=== PATIENT | female | born 1970 | race Caucasian/White ===

== ENCOUNTER 2021-11-09 01:20 | Outpatient (CLI) | payer OTHER, SELFPAY ==
--- OUTSIDE RECORDS SUMMARY | 2021-11-09 01:22 | XMS_ITS | Encounter Summary ---
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 Here for IUD check o r removal based on her CT results Assessment and Plan 1. Removal of intrauterine devic e ? removal of iud (PROC) 2. Amenorrhea She does not have menses with the IUD. We will check labs to see if she is menopausal. If she is, then she does not need contraception anymore. If she is not, then we will begin some form of contrace ption. She does smoke and cannot be on the pill. We could use Depo-Provera. I spent 20 minutes in preparation in direct patient care today. ? FSH (follicle-stimulating hormone), serum ? lh (luteinizing hormone), serum Discussion Note: None recorded.Patient educational handouts: No information available. Plan of Care Reminders Provider Appointments e 20 Jeremiah Correia MD 12/25/2021 3:30PM Lab F[facility] [place] (Follicle-stimulating 10/12/2021 Hospital L ab Hormone), Serum (Internal) ? L[facility] [place] (Luteinizing Hormone), [facility] Referral None ? ? recorded. Procedures Removal of ? Iud (PROC) 10/12/2021 Surgeries None ? ? recorded. Imaging None ? ? recorded. Medications Name Start Date ? ? albuterol sulfate HFA 90 mcg/actuation aerosol inhaler ? Inhale 2 puffs every 4 hours by inhalation route as n eeded for 30 days. Combivent Respimat 20 mcg-100 mcg/actuation solution f or inhalation ? Inhale 1 puff 4 times a day by inhalation route as ne eded for 90 days. ibuprofen 600 mg tablet ? Take 1 tablet 4 times a day by oral route as needed f or 10 days. Mirena ? nicotine ? gum ondansetron 4 mg disintegrating tablet ? 1-2 tabs every 6 hours prn nausea Medications Administered None recorded. Vitals Weight Blood Pressure 142.7 lbs 122/78 mm[Hg] Results Lab Results Date Name Specimen Result Interpretation Description Value Range Status Address ? 10/12/2021 FSH S ? Fsh 80.2 see note Final [facility] [place] (Follicle-stimulating mIU/mL mIU/mL Hospital Lab Hormone), Serum ( Internal): [address] 10/12/2021 Lh (Luteinizing S ? Lh 38.0 see note Fi nal [place] Hormone), Serum mIU/mL mIU/mL H ospital Lab (Internal) : [address] Allergies Code Code System Name Reaction Severity Onset 20271208 RxNorm Flagyl Hives ? Vomiting ? ? Problems Name Status Onset Date Source ? Acute Sinusitis Active 02/18/2020 ? Mild Persistent Asthma Active 11/13/2020 ? Abdominal Pain Active 08/31/2021 ? Herpes Zoster Active ? History Nicotine Dependence Active ? History Chronic Obstructive Lung Disease Active ? History Joint Pain Active ? History Replacement of Intrauterine Active ? Hist ory Contraceptive Device Adult Health Examination Active ? History Procedures Date Name Performed by ? ? Diagnostic Laparoscopy Information not a vailable Notes: bilat Ovarian cysts ? Cryotherapy Information not avai lable Notes: of cervix at [facility] Vaccine List Vaccine Type COVID-19 (SARS-COV-2) vaccine, unspecifi ed 07/17/2021 COVID-19, mRNA, LNP-S, PF, 100 mcg/0.5 m L dose (Moderna) 07/01/2020?0.5 mL 07/30/2020?0.5 mL Hep B, adult 02/15/2018?1 mL influenza, seasonal, injectable 03/30/2018?0.5 mL 03/26/2019?0.5 mL 04/15/2020?0.5 mL 04/21/2021 MMR 02/15/2018?0.5 mL 03/21/2018?0.5 mL Tdap 09/15/2017?0.5 mL Social History Tobacco Smoking Status Heavy Tobacco Smoker (1 pack Notes: half a pack a per day) day Are you currently employed? Y Do you have smoke and carbon Y monoxide detectors in your home? What is your code status? 0 In the 14 days before symptom N onset, have you had close contact with a person who is under investigation for COVID-19 while that person was ill? What was the date of your most 08/31/2021 recent tobacco screening? Do you use any illicit or N recreational drugs? How many years have you smoked 32 tobacco? In the 14 days before symptom N onset, have you had close contact with a laboratory-confirmed COVID-19 while that case was ill? What is your exercise level? Moderate Notes: w alking and canoeing. Live alone or with others? with others Notes: Hus band and stepson What is your level of alcohol None consumption? Do you have any pets? Y Education 2 Year College Have you been to an area known N to be high risk for COVID-19? Language Difficulties No What is your current pack 20-29packyears years? Current Method of Control Intrautrine device Are you passively exposed to N smoke? Hard of hearing or deaf in one N or both ears? What is your level of caffeine Moderate Notes: 2 cups of coffee consumption? daily and sometimes a soda Have you recently traveled N abroad? 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 Past Encounters 10/12/2021 Removal of Intrauterine Device; Amenorrh ea Jeremiah Lopez MD: [address] [place] [phone], Ph. 09/28/2021 Abdominal Pain Mojgan Wang PA-C: [address] [place] [phone], Ph. History of Present Illness Note: <div>She has a Mirena IUD with an arm that seems to be in the myometrium. She states thatshe has had intermittent left-sided pain. The IUD was noted to be in the left myometrium on the CT. She denies vaginal bleeding. She has no other pelvic pain.</div>Review of Systems: ROS as noted in the HPI Review of Systems None recorded. Physical Exam ? Notes: <div>After discussing the pr ocedure with the patient, and the possibility that the IUD could break if it we re truly lodged in the myometrium, I did a speculum exam. The IUD strin gs were seen approximately 4 cm from the cervix. I was able to grasp the IUD st rings with a long Radha clamp. The IUD came out without difficulty. It came out in total with no breakage of an arm. She had some cramping, but she dayday ated this well.</div>
--- OUTSIDE RECORDS SUMMARY | 2021-11-09 01:22 | XMS_ITS | Encounter Summary ---
:1970 Author Care Team Providers Name Role Phone Mojgan Wang PA-C Primary Care Provider Unavailable Estefani Saul Director Of Sales Support [phone] Reason for Visit blood in stool Assessment and Plan 1. Abdominal pain and rectal bleeding. 08/31/2021 New problem, severe. To see Gen Surgery. Await labs. ? CBC w/ auto diff ? ESR (erythrocyte sedimenta tion rate), blood ? CMP, serum or plasma ? general surgeon referral - 51 yo woman. PAIN IS 5/10 AT LLQ AND HER LOWER BACK. POSITIVE BLACK STOOLS AND PO SITIVE RED BLOOD PER RECTUM WITH MUCH MUCOUS IN STOOLS X 10 DAYS. + FAM HISTORY OF BR EAST CANCERS BUT NO COLON CANCERS. FOR 2 WEEKS, TEMP HAS BEEN AT 99 DEGREES. WBC = 10 WITH POLYS AT 63% AND HEMOGLOBIN 13.6. NO NAUSEA. Has a Mirena. This doesn't fe el like her ovaries. ? ondansetron 4 mg disintegr ating tablet ? venipuncture ? urinalysis, complete Discussion Note: None recorded.Patient educational handouts: No information available. Plan of Care Reminders Provider Appointments e 20 Jeremiah Correia MD 12/25/2021 3:30PM Lab CBC W/ Auto [place] Diff 08/31/2021 Hospital Lab (In [facility]) ? ESR [place] (Erythrocyte 08/31/2021 Hospital Lab (In [facility]) Sedimentation Rate), Blood ? CMP, Serum or [facility] Plasma 08/31/2021 Hospital Lab (In [facility]) ? Venipuncture P_nc Primary Care 08/31/2021 [place] ? Urinalysis, [place] Complete 08/31/2021 Hospital Lab (In [facility]) Referral General Surgeon A consuelo Referral 08/31/2021 [facility] Procedures None recorded. ? ? Surgeries None recorded. ? ? Imaging None recorded. ? ? Medications Name Start Date ? ? albuterol [...] prn nausea Medications Administered None recorded. Vitals Blood Pressure 126/76 mm[Hg] Results Lab Results Date Name Specimen Result Interpretation Description Value Range Status Address ? 08/31/2021 CBC W/ Auto BLD High Wbc 11.2 10*3/uL 5.0-10.0 Final [facility] 10*3/uL [facility] ([facility]) : [address] ? ? BLD ? Rbc 4.49 10*6/uL 4.10-5.30 Final N orth 10*6/uL [facility] (Internal) : [address] t ? ? BLD ? Hgb 13.9 g/dL 12.0-16.0 Final Nort [facility] g/dL [facility] L [facility] (Internal) : [address] t ? ? BLD ? Hct 41.9 % 37.0-47.0 Final [facility] L ab (Internal) : [address] t ? ? BLD ? Mcv 93.3 fL 80.0-96.0 Final [facility] L ab (Internal) : [address] t ? ? BLD ? Mch 31.0 pg 26.0-32.0 Final [facility] L ab (Internal) : [address] t ? ? BLD ? Mchc 33.2 g/dL 31.0-35.0 Final Nort [facility] g/dL [facility] (Internal) : [address] t ? ? BLD ? Rdw 12.9 % 11.5-14.5 Final [facility] L ab (Internal) : [address] t ? ? BLD ? Plt 319 10*3/uL 130-450 Final Nort [facility] 10*3/uL [facility] (Internal) : [address] t ? ? BLD ? Anc 6.00 10*3/uL ? Final Nort [facility] L ab (Internal) : [address] t ? ? BLD ? Nlr 1.38 0.00-3.20 Final [facility] L ab (Internal) : [address] t ? ? BLD ? Neutro 53.5 % 40.0-75.0 Final [facility] L ab (Internal) : [address] t ? ? BLD ? Lymph 38.8 % 20.0-50.0 Final [facility] L ab (Internal) : [address] t ? ? BLD ? Aiken 6.1 % 2.0-10.0 Final [facility] L ab (Internal) : [address] t ? ? BLD ? Eos 1.0 % 1.0-6.0 % Final [facility] L ab (Internal) : [address] t ? ? BLD ? Baso 0.4 % 0.0-1.0 % Final [facility] L ab (Internal) : [address] t ? ? BLD ? Ig 0.2 % 0.0-0.9 % Final [facility] L ab (Internal) : [address] t 08/31/2021 CMP, Serum or S ? g/r 84 mg/dL 74-106 Rosemary l [facility] Plasma mg/dL [facility] L ab (Internal) : [address] t ? ? S ? Bun 14 mg/dL 7-18 Final North mg/dL [facility] L ab (Internal) : [address] t ? ? S ? Crea 0.9 mg/dL 0.6-1.0 Final North mg/dL [facility] L ab (Internal) : [address] t ? ? S ? Ca 9.2 mg/dL 8.5-10.1 Final [facility] mg/dL [facility] L ab (Internal) : [address] t ? ? S ? Na 139 mmol/L 136-145 Final North mmol/L [facility] L [facility] (Internal) : [address] t ? ? S ? K 4.2 mmol/L 3.5-5.1 Final [facility] mmol/L [facility] (Internal) : [address] t ? ? S ? Cl 101 mmol/l 98-107 Final [place] mmol/l [facility] L [facility] (Internal) : [address] t ? ? S ? Tco2 28.6 mmol/L 21.0-32.0 Final No rth mmol/L [facility] L [facility] (Internal) : [address] t ? ? S ? Tp 7.3 g/dL 6.4-8.2 Final [facility] g/dL [facility] L [facility] (Internal) : [address] t ? ? S ? Alb 4.1 g/dL 3.4-5.0 Final [facility] g/dL [facility] L [facility] (Internal) : [address] t ? ? S ? Tbil 0.50 mg/dL 0.20-1.00 Final Nor th mg/dL [facility] L ab (Internal) : [address] ? ? S ? Alp 86 U/L 50-136 Final [facility] U/L [facility] L [facility] (Internal) : [address] ? ? S ? Alt (Sgpt) 22 U/L 14-59 U/L Final No rth [facility] L ab (Internal) : [address] ? ? S ? Ast (Sgot) 16 U/L 15-37 U/L Final No rth [facility] L [facility] (Internal) : [address] 08/31/2021 Urinalysis, UR ? UA-color yellow pale Final [place] Complete yellow [facility] L ab (Internal) : [address] t ? ? UR ? UA-appear clear clear Final [facility] L ab (Internal) : [address] t ? ? UR ? UA-spec >=1.030 1.003-1.0 Final Nort [facility] L ab (Internal) : [address] t ? ? UR ? UA-pH 5.5 [pH] 4.6-8.0 Final [place] [pH] [facility] L ab (Internal) : [address] [place] ? ? UR ? UA-leuk negative negative Final Nort [facility] L [facility] (Internal) : [address] [place] ? ? UR ? UA-nitrite negative negative Final N orth [facility] ab (Internal) : [address] [place] ? ? UR ? UA-prot negative negative Final Nort [facility] ab (Internal) : [address] [place] ? ? UR ? UA-gluc negative negative Final Nort [facility] ab (Internal) : [address] [place] ? ? UR ? UA-ketone negative negative Final No rth [facility] ab (Internal) : [address] [place] ? ? UR ? UA-urobil normal normal Final [facility] ab (Internal) : [address] [place] ? ? UR ? UA-bili negative negative Final [facility] ab (Internal) : [address] ? ? UR ? UA-blood negative negative Final [facility] ab (Internal) : [address] [place] ? ? UR ? UA-WBC 0-3 [hpf] 0-3 [hpf] Final [facility] ab (Internal) : [address] [place] ? ? UR ? UA-RBC 0-2 [hpf] 0-2 [hpf] Final [facility] ab (Internal) : [address] [place] ? ? UR ? UA-bacteri none seen none seen Final [place] a [hpf] [hpf] [facility] ab (Internal) : [address] [place] ? ? UR ? UA-epithel rare [hpf] none seen Final [place] ial [hpf] [facility] ab (Internal) : [address] [place] ? ? UR ? UA-mucus none seen none seen Final N orth [hpf] [hpf] [facility] ab (Internal) : [address] [place] ? ? UR ? Granular C rare [hpf] ? Final N [facility] ab (Internal) : [address] [place] 08/31/2021 ESR BLD ? Esr 4 mm/h 0-30 mm/h Final [facility] (Erythrocyte Coun try Sedimentation Hos pital Lab Rate), Blood (Int ernal): [address] 08/31/2021 Venipuncture ? Location Right ? ? P_nc Primary Antecubital Care [place]: [address], [place] ? ? ? Needle 21g ? ? P_nc Prim barb Vacutainer Care [place]: [address], [place] ? ? ? Number of 1 ? ? P_nc P rimary Attempts Care [place]: [address], [place] ? ? ? Successful Yes ? ? P_nc Primary Care [place]: [address], [place] ? ? ? Dressing Pressure ? ? P_nc Primary Band-aid Care Applied [place]: [address], [place] ? ? ? Initials hj ? ? P_nc Pr imary Care [place]: [address], [place] Allergies Code Code System Name Reaction Severity [...] not avai lable Notes: of cervix at [facility] Vaccine List Vaccine Type COVID-19 (SARS-COV-2) vaccine, [...] N abroad? 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 Past Encounters 08/31/2021 Abdominal Pain Mojgan Wang PA-C: [address] [place] [phone], Ph. History of Present Illness Note: <div>08/31/21: patient here for acute visit hematochezia for 3 days. 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 and bloating. The pain starts in the LLQ and radiates to the left lumbar-sacral area.</div><div>Patient states the black stools started Tuesday08/28/2021 and progressed into red bloody stools for 24-48 hours.</div&gt ;<div>RoS: Patient states now the stools are soft without blood but still experiencing the abdominal pain and bloating, along with mucousy stools. She is nauseated. She has no fevers.</div><div>Patient contacted by [facility] unable to have consult for colonscopy until 10/20/20.Patient wants to see if [facility] surgeons can see her sooner.</div>Review of Systems: ROS as noted in the HPI Review of Systems None recorded. Physical Exam ? Comprehensive PE (female) Reported By: Patient Constitutional: General Appearance: healthy- appearing, well-nourished, well-developed. Level of Dis tress: no apparent distress; Patient notices some fullnes s, pain under the left lower ribcage. No cough Respiratory: Respiratory effort: unlabore d respirations, no use of accessory muscles; CTA on 08/31/2021 Cardiovascular: Heart Auscultation: regular rate and rhythm (RRR) Gastrointestinal: Bowel Sounds: LLQ bowel soun ds normal, LUQ bowel sounds normal, RUQ bowel sounds normal, RLQ bow el sounds normal. Inspection and Palpation: LUQ tenderness, L LQ tenderness, epigastric tenderness, suprapubic tenderness, costo vertebral (CVA) tenderness: left Lymphatic: Palpation: no axillary lymph adenopathy on the left, no axillary lymphadenopathy on the right , no cervical lymphadenopathy on the left, no cervical lymphadeno [place] on the right, no supraclavicular lymphadenopathy on the left, no supraclavicular lymphadenopathy on the right, no inguinal lymph adenopathy on the left, no inguinal lymphadenopathy on the right Skin: Inspection and palpation: no rash, no abnormal nevi, no ulcer, no induration, normal turgor, n o jaundice, no subcutaneous nodules. Nails: normal Psychiatric: Insight: good insight, good judgment. Mental Status: normal mood, normal affect
--- OUTSIDE RECORDS SUMMARY | 2021-11-09 01:22 | XMS_ITS ---
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 Active ? Vomiting ? Active ? Medications Name Status Start Date Stop Date ? ? albuterol sulfate HFA 90 Active ? Not dinah ilable mcg/actuation aerosol inhaler amoxicillin 500 mg capsule Completed ? 11/12 amoxicillin 500 mg tablet Completed 07/07/20162016 1 (one) Tablet Tablet: bid - twice daily amoxicillin 875 mg tablet Completed ? 2019 amoxicillin 875 mg-potassium clavulanate 125 mg tablet Completed ? 04/27/2021 TAKE 1 TABLET BY MOUTH TWICE DAILY FOR 10 DAYS azithromycin 250 mg tablet Completed ? 04/27 TAKE TWO TABLETS BY MOUTH AT ONCE ON TH E FIRST DAY THEN TAKE ONE DAILY THEREAFTER azithromycin 500 mg tablet Completed ? 11/02 Take 1 tablet every day by oral route for 5 days. B12 Completed ? 11/02/2018 1000 mg daily Bactrim DS 800 mg-160 mg tablet Completed 11/21/2012 11/28/2012 1 (one) Tablet: two times daily Calcium 500 Completed ? 11/02/2018 cephalexin 500 mg capsule Completed ? 2020 cetirizine 10 mg tablet Completed 11/21/2012 08/07/19 15 1 Tablet: daily Chantix 1 mg tablet Completed 01/10/2013 07/19/2013 1 Tablet: bid - twice daily Chantix Starting Month Box 0.5 mg (11)-1 mg (42) tablets in dose pack Completed 12/18/2015 07/07/2016 1 (one) Tablet Tablet: As directed Combivent Respimat 20 mcg-100 Active ? No t available mcg/actuation solution for inhalation erythromycin 5 mg/gram (0.5 %) eye ointment Completed 03/0504/08/2015 1 (one) Ointment: bid - twice daily ibuprofen 600 mg tablet Active ? Not avai lable Lidocaine Viscous 2 % mucosal solution Completed 7 10/05/2016 15 Milliliter: three times daily, as needed meloxicam 7.5 mg tablet Completed ? 03/16/20 18 Take 1 tablet every day by oral route. Metrogel 1 % topical Completed ? 11/02/2018 APPLY TO THE AFFECTED AREA(S) BY TOPICA L ROUTE ONCE DAILY ; RUB IN GENTLY AND COMPLETELY Metrogel Vaginal 0.75 % Completed 06/01/2004 07/31/19 09 Mirena Active ? Not available misoprostol 200 mcg tablet Completed 08/05/200808/22 2 (two) Tablet: Take 2-4 hours before procedure Nasonex 50 mcg/actuation [place] Completed 11/21/2012 0 08/07/2014 2 (two) puffs: each nostril Daily nicotine Active ? Not available gum nicotine 14 mg/24 hr daily transdermal patch Completed ? 11/02/2018 Apply 1 patch every day by transdermal route. nicotine 21 mg/24 hr daily transdermal patch Completed 12/18/2015 1 (one) Patch 24HR: every three days omeprazole 40 mg capsule,delayed release Completed 016 12/18/2015 1 (one) Capsule DR: daily ondansetron 4 mg disintegrating tablet Active ? Not available 1-2 tabs every 6 hours prn nausea prednisone 10 mg tablet Completed 04/08/2015 04/24/20 15 1 (one) Tablet: See comments prednisone 20 mg tablet Completed ? 08/31/19 22 Take 1 tablet every day by oral route in the morning for 5 days . Probiotic Completed ? 11/13/2019 Symbicort 160 mcg-4.5 mcg/actuation HFA aerosol inhaler Complete d ? 11/13/2019 Inhale 2 puffs twice a day by inhalation route. valacyclovir 1 gram tablet Completed 02/28/201703/07 1 (one) Tablet: tid - three times a day Valium 5 mg tablet Completed 08/05/2008 08/22/2008 1 (one) Tablet: As directed vitamin A Completed ? 04/27/2021 Vitamin C Completed ? 04/27/2021 Vitamin D Completed ? 04/27/2021 vitamin E Completed ? 04/27/2021 Zofran 4 mg tablet Completed 10/14/2014 10/18/2014 1 (one) Tablet: every 12 hours Problems Name Status Onset Date Source ? Acute Sinusitis Active 02/18/2020 ? Mild Persistent Asthma Active 11/13/2020 ? Abdominal Pain Active 08/31/2021 ? Herpes Zoster Active ? History Biotin Deficiency Disease Unknown ? 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 History Nicotine Dependence Active ? History Pharyngitis Unknown ? History Sinusitis Unknown ? History Tracheobronchitis Unknown ? History Chronic Obstructive Lung Disease Active ? History Female Genital Organ Symptoms Unknown ? Hi story Joint Pain Active ? History Dizziness and Giddiness Unknown ? History Eruption Unknown ? History Edema Unknown ? History Tachycardia Unknown ? History Cough Unknown ? History Abdominal Pain Unknown ? History Replacement of Intrauterine Active ? Hist ory Contraceptive Device Counseling Unknown ? History Adult Health Examination Active ? History Inflammatory Disorder of Digestive Unknown ? History Tract Pain of Left Eye Unknown ? History Specialized Medical Examination Unknown ? History Procedures Date Name Performed by ? ? Diagnostic Laparoscopy Information not a vailable Notes: bilat Ovarian cysts ? Cryotherapy Information not avai lable Notes: of cervix at UV 11/13/2019 XR, Knee, 4 or More View [facility] H ospital Radiology (Internal) [address] [place] [address] (Work Place) 04/27/2021 XR, Thoracic Spine, 3 View [facility] Radiology (Internal) [address] [place] [address] (Work Place) 04/27/2021 XR, Cervical Spine, 4 or 5 View [facility] Radiology (Internal) [address] [place] [address] (Work Place) Results Lab Results Date Name Specimen Result Interpretation Description Value Range Status Address ? 10/12/2021 FSH S ? Fsh 80.2 see note Final Nort h (Follicle-stimulating mIU/mL mIU/mL Country Hormone), Serum H ospital Lab (Internal) : [address] 10/12/2021 Lh (Luteinizing S ? Lh 38.0 see note [facility] Hormone), Serum mIU/mL mIU/mL [facility] L ab (Internal) : [address] 09/28/2021 CRP, High Sensitivity, S ? Rcrp 2.15 mg/L 0 .00-3.00 Final [place] Serum or Plasma mg/L [facility] L ab (Internal) : [address] 09/28/2021 CBC W/ Auto Diff BLD ? Wbc 9.4 5.0-10.0 F inal [place] 10*3/uL 10*3/uL [facility] L ab (Internal) : [address] ? ? BLD ? Rbc 4.62 4.10-5.30 Final [place] 10*6/uL 10*6/uL [facility] Hospital L ab (Internal) : [address] ? ? BLD ? Hgb 14.5 g/dL 12.0-16.0 Final Nort h g/dL [facility] L ab (Internal) : [address] ? ? BLD ? Hct 44.2 % 37.0-47.0 Final [facility] L ab (Internal) : [address] ? ? BLD ? Mcv 95.7 fL 80.0-96.0 Final [facility] L ab (Internal) : [address] ? ? BLD ? Mch 31.4 pg 26.0-32.0 Final [facility] L ab (Internal) : [address] ? ? BLD ? Mchc 32.8 g/dL 31.0-35.0 Final Nort h g/dL [facility] L ab (Internal) : [address] ? ? BLD ? Rdw 12.8 % 11.5-14.5 Final [facility] L ab (Internal) : [address] ? ? BLD ? Plt 325 130-450 Final [place] 10*3/uL 10*3/uL [facility] L ab (Internal) : [address] ? ? BLD ? Anc 4.28 ? Final [place] 10*3/uL [facility] L ab (Internal) : [address] ? ? BLD ? Nlr 0.99 0.00-3.20 Final [facility] L ab (Internal) : [address], [place] ? ? BLD ? Neutr 45.8 % 40.0-75.0 Final [facility] Hospital L ab (Internal) : [address] ? ? BLD ? Lymph 46.3 % 20.0-50.[address] [facility] Hospital L ab (Internal) : [address] t ? ? BLD ? [place] 6.3 % 2.0-10.[address] [facility] Hospital L ab (Internal) : [address] t ? ? BLD Low Eos 0.7 % 1.0-6.0 % Final [facility] L ab (Internal) : [address] t ? ? BLD ? Baso 0.6 % 0.0-1.0 % Final [facility] L ab (Internal) : [address] t ? ? BLD ? Ig 0.3 % 0.0-0.9 % Final [facility] L ab (Internal) : [address] 09/28/2021 ESR (Erythrocyte BLD ? Esr 5 mm/h 0-30 mm/h Final [place] Sedimentation Rate), [facility] Blood [facility] L ab (Internal) : [address] 09/28/2021 Venipuncture ? Locat Right ? ? P_nc Primary ion [facility] [place]/Orl ea ns: [address], [place] ? ? ? Needl 21g ? ? P_nc Prima ry e Vacutaine Care r [place]/Orl ea ns: [address], [place] ? ? ? Numbe 1 ? ? P_nc Prima ry r of Care Attemp [place]/Orl ea ts ns: [address], [place] ? ? ? Succe Yes ? ? P_nc Prima ry ssful Care [place]/Orl ea ns: [address], [place] ? ? ? Dress Pressure ? ? P_nc Marilou sharon ing Band-aid Care Applied [place]/Or krishna ns: [address], [place] ? ? ? Initi hj ? ? P_nc Prima ry als Care [place]/Orl ea ns: [address], [place] 08/31/2021 CBC W/ Auto Diff BLD High Wbc 11.2 5.0-10.0 F inal [place] 10*3/uL 10*3/uL [facility] Hospital L ab (Internal) : [address] ? ? BLD ? Rbc 4.49 4.10-5.30 Final [place] 10*6/uL 10*6/uL [facility] Hospital L ab (Internal) : [address] ? ? BLD ? Hgb 13.9 g/dL 12.0-16.0 Final Nort h g/dL [facility] Hospital L ab (Internal) : [address] ? ? BLD ? Hct 41.9 % 37.0-47.[address] [facility] Hospital L ab (Internal) : [address] ? ? BLD ? Mcv 93.3 fL 80.0-96.0 Final [facility] L ab (Internal) : [address] ? ? BLD ? Mch 31.0 pg 26.0-32.0 Final [facility] Hospital L ab (Internal) : [address] ? ? BLD ? Mchc 33.2 g/dL 31.0-35.0 Final Nort h g/dL [facility] Hospital L ab (Internal) : [address] ? ? BLD ? Rdw 12.9 % 11.5-14.5 Final [facility] L ab (Internal) : [address] ? ? BLD ? Plt 319 130-450 Final [place] 10*3/uL 10*3/uL [facility] Hospital L ab (Internal) : [address] ? ? BLD ? Anc 6.00 ? Final [place] 10*3/uL [facility] Hospital L ab (Internal) : [address] ? ? BLD ? Nlr 1.38 0.00-3.20 Final [facility] Hospital L ab (Internal) : [address] ? ? BLD ? Neutr 53.5 % 40.0-75.0 Final [facility] Hospital L ab (Internal) : [address] ? ? BLD ? Lymph 38.8 % 20.0-50.[address] [facility] Hospital L ab (Internal) : [address] ? ? BLD ? [place] 6.1 % 2.0-10.0 Final [facility] (Internal[facility] : [address] ? ? BLD ? Eos 1.0 % 1.0-6.0 % Final [facility] (Internal) : [address] ? ? BLD ? Baso 0.4 % 0.0-1.0 % Final [place] [facility] (Internal) : [address] ? ? BLD ? Ig 0.2 % 0.0-0.9 % Final [place] [facility] (Internal) : [address] 08/31/2021 CMP, Serum or Plasma S ? g/r 84 mg/dL 74-1 06 Final [facility] mg/dL [facility] (Internal) : [address] ? ? S ? Bun 14 mg/dL 7-18 Final [place] mg/dL [facility] (Internal) : [address] ? ? S ? Crea 0.9 mg/dL 0.6-1.0 Final [place] mg/dL [facility] (Internal) : [address] ? ? S ? Ca 9.2 mg/dL 8.5-10.1 Final [place] mg/dL [facility] L [facility] (Internal) : [address] ? ? S ? Na 139 136-145 Final [place] mmol/L mmol/L [facility] (Internal) : [address] ? ? S ? K 4.2 3.5-5.1 Final [place] mmol/L mmol/L [facility] L [facility] (Internal) : [address] ? ? S ? Cl 101 98-107 Final [place] mmol/l mmol/l [facility] (Internal) : [address] ? ? S ? Tco2 28.6 21.0-32.0 Final [place] mmol/L mmol/L [facility] (Internal) : [address] ? ? S ? Tp 7.3 g/dL 6.4-8.2 Final [place] g/dL [facility] (Internal) : [address] ? ? S ? Alb 4.1 g/dL 3.4-5.0 Final [place] g/dL [facility] L ab (Internal) : [address] ? ? S ? Tbil 0.50 0.20-1.00 Final [place] mg/dL mg/dL [facility] (Internal) : [address] ? ? S ? Alp 86 U/L 50-136 Final [place] U/L [facility] L ab (Internal) : [address] ? ? S ? Alt 22 U/L 14-59 U/L Final [place] (Sgpt) [facility] L ab (Internal) : [address] ? ? S ? Ast 16 U/L 15-37 U/L Final [place] (Sgot) [facility] L ab (Internal) : [address] 08/31/2021 Urinalysis, Complete UR ? UA-co yellow pale Final [place] goran yellow [facility] L ab (Internal) : [address] ? ? UR ? UA-ap clear clear Final [facility] Hospital L ab (Internal) : [address] ? ? UR ? UA-sp >=1.030 1.003-1.0 Final [place] ec 35 [facility] Hospital L ab (Internal) : [address] ? ? UR ? UA-pH 5.5 [pH] 4.6-8.0 Final [place] [pH] [facility] L ab (Internal) : [address] ? ? UR ? UA-le negative negative Final [place] uk [facility] (Internal) : [address] ? ? UR ? UA-ni negative negative Final [place] trite [facility] L ab (Internal) : [address] ? ? UR ? UA-pr negative negative Final [place] ot [facility] L ab (Internal) : [address] ? ? UR ? UA-gl negative negative Final [place] uc [facility] L ab (Internal) : [address] ? ? UR ? UA-ke negative negative Final [place] tone [facility] L ab (Internal) : [address] ? ? UR ? UA-ur normal normal Final [place] obil [facility] ab (Internal) : [address], [place] ? ? UR ? UA-bi negative negative Final North li [facility] ab (Internal) : [address], [place] ? ? UR ? UA-bl negative negative Final North ood [facility] ab (Internal) : [address], [place] ? ? UR ? UA-WB 0-3 [hpf] 0-3 [hpf] Final Nort h C [facility] ab (Internal) : [address], [place] ? ? UR ? UA-RB 0-2 [hpf] 0-2 [hpf] Final Nort h C [facility] ab (Internal) : [address], [place] ? ? UR ? UA-ba none seen none seen Final Nort h cteria [hpf] [hpf] [facility] ab (Internal) : [address], [place] ? ? UR ? UA-ep rare none seen Final [place] itheli [hpf] [hpf] [facility] ab (Internal) : [address], [place] ? ? UR ? UA-mu none seen none seen Final Nort h cus [hpf] [hpf] [facility] ab (Internal) : [address], [place] ? ? UR ? Granu rare ? Final [place] lar C [hpf] [facility] (Internal) : [address] 08/31/2021 ESR (Erythrocyte BLD ? Esr 4 mm/h 0-30 mm/h Final [place] Sedimentation Rate), [facility] ab (Internal) : [address] 08/31/2021 Venipuncture ? Locat Right ? ? P_nc Primary ion [facility] [place]l [place] ns: [address], [place] ? ? ? Needl 21g ? ? P_nc Prima ry e Vacutaine Care r [place]l [place] ns: [address], [place] ? ? ? Numbe 1 ? ? P_nc Prima ry r of Care Attemp [place]l e[place] ts ns: [address], [place] ? ? ? Succe Yes ? ? P_nc Prima ry ssful Care [place]l ea ns: [address], [place] ? ? ? Dress Pressure ? ? P_nc Marilou sharon ing Band-aid Care Applied [place]/Or krishna ns: [address], [place] ? ? ? Initi hj ? ? P_nc Prima ry als Care [place] ns: [address], [place] 08/28/2021 CBC W/ Auto Diff BLD ? Wbc 10.0 5.0-10.0 F inal [place] 10*3/uL 10*3/uL [facility] Hospital L ab (Internal) : [address] ? ? BLD ? Rbc 4.40 4.10-5.30 Final [place] 10*6/uL 10*6/uL [facility] Hospital L ab (Internal) : [address] ? ? BLD ? Hgb 13.6 g/dL 12.0-16.0 Final Nort h g/dL [facility] Hospital L ab (Internal) : [address] ? ? BLD ? Hct 41.0 % 37.0-47.0 Final [facility] L ab (Internal) : [address] ? ? BLD ? Mcv 93.2 fL 80.0-96.0 Final [facility] L ab (Internal) : [address] ? ? BLD ? Mch 30.9 pg 26.0-32.0 Final [facility] L ab (Internal) : [address] ? ? BLD ? Mchc 33.2 g/dL 31.0-35.0 Final Nort h g/dL [facility] Hospital L ab (Internal) : [address] ? ? BLD ? Rdw 12.7 % 11.5-14.5 Final [facility] L ab (Internal) : [address] ? ? BLD ? Plt 299 130-450 Final [place] 10*3/uL 10*3/uL [facility] Hospital L ab (Internal) : [address] ? ? BLD ? Anc 6.27 ? Final [place] 10*3/uL [facility] L ab (Internal) : [address] ? ? BLD ? Nlr 2.13 0.00-3.20 Final [facility] L ab (Internal) : [address] ? ? BLD ? Neutr 63.0 % 40.0-75.0 Final [facility] o [facility] (Internal) : [address] ? ? BLD ? Lymph 29.5 % 20.0-50.0 Final [facility] L ab (Internal) : [address] ? ? BLD ? [place] 6.2 % 2.0-10.0 Final [facility] L ab (Internal) : [address] ? ? BLD Low Eos 0.4 % 1.0-6.0 % Final [facility] (Internal) : [address] ? ? BLD ? Baso 0.5 % 0.0-1.0 % Final [facility] (Internal) : [address] ? ? BLD ? Ig 0.4 % 0.0-0.9 % Final [facility] (Internal) : [address], [place] 10/13/2020 SARS CoV 2 RNA SWAB ? Covid shannan-cov-2 shannan-cov-2 Final [place] (COVID-19), QL, PCR not not Country order worker-PCR, Respiratory Screen detected detected Hospital Lab Specimen (Interna l): [address] 10/10/2020 SARS CoV 2 RNA SWAB ? Covid shannan-cov-2 shannan-cov-2 Final [place] (COVID-19), QL, PCR not not Country order worker-PCR, Respiratory Screen detected detected Hospital Lab Specimen (Interna l): [address] [place] 07/10/2019 Rapid Flu (A+B) ? No ? ? ? [facility] [address] [facility] [place] 07/10/2019 Mononucleosis, ? No ? ? ? P_nc Primary Heterophile Ab, Blood observ Care [facility]/Orl ea record ns: [address] [facility] 07/10/2019 Rapid Strep Group a, ? No ? ? ? P_nc Primary Throat observ Care [facility]/Orl ea record ns: [address] [facility] 07/05/2019 CBC W/ Auto Diff BLD High Wbc 16.3 5.0-10.0 F inal [place] 10*3/uL 10*3/uL [facility] L ab (Internal) : [address] ? ? BLD - Rbc 4.30 4.10-5.30 Final [place] 10*6/uL 10*6/uL [facility] Hospital L ab (Internal) : [address] ? ? BLD - Hgb 13.5 g/dL 12.0-16.0 Final Nort h g/dL [facility] Hospital L ab (Internal) : [address] ? ? BLD - Hct 41.0 % 37.0-47.[address] [facility] Hospital L ab (Internal) : [address] ? ? BLD - Mcv 95.3 fL 80.0-96.0 Final [facility] L ab (Internal) : [address] ? ? BLD - Mch 31.4 pg 26.0-32.0 Final [facility] Hospital L ab (Internal) : [address] ? ? BLD - Mchc 32.9 g/dL 31.0-35.0 Final Nort h g/dL [facility] Hospital L ab (Internal) : [address] ? ? BLD - Rdw 13.2 % 11.5-14.5 Final [facility] L ab (Internal) : [address] ? ? BLD - Plt 300 130-450 Final [place] 10*3/uL 10*3/uL [facility] Hospital L ab (Internal) : [address] ? ? BLD - Anc 12.44 ? Final [place] 10*3/uL [facility] Hospital L ab (Internal) : [address] ? ? BLD High Neutr 76.6 % 40.0-75.0 Final [facility] Hospital L ab (Internal) : [address] ? ? BLD Low Lymph 16.9 % 20.0-50.[address] [facility] Hospital L ab (Internal) : [address] ? ? BLD - [place] 5.4 % 2.0-10.0 Final [facility] (Internal) : [address] ? ? BLD Low Eos 0.3 % 1.0-6.0 % Final [facility] Hospital L ab (Internal) : [address] ? ? BLD - Baso 0.2 % 0.0-1.0 % Final [facility] Hospital L ab (Internal) : [address] ? ? BLD - Ig 0.6 % 0.0-0.9 % Final [facility] Hospital L ab (Internal) : [address] [facility] 07/05/2019 Rapid Strep Group a, THRT - Final microbiol ? Final [place] Throat ogy Country results [facility] (Internal[facility] : [address] [facility] Mononucleosis, BLD - [place] negative negative F inal [place] Heterophile Ab, Serum [facility] L ab (Internal) : [address] [facility] 07/05/2019 Rapid Flu (A+B) NASAL - Final microbiol ? F inal [facility] results Hospital Lab (Internal) : [address] 03/22/2018 Hepatitis B Surface S - Hep B positive ? Final [place] Ab, Qualitative, Serum [facility] e Ab Hospital L ab (Internal) : [address] ? ? S - Hbs >1000.0 ? Final [place] Antibo mIU/mL Country dy, Hospital L ab Quant (Internal) : [address] 01/10/2018 Hepatitis B Surface S - Hep B negative ? Final [place] Ab, Qualitative, Serum [facility] Hospital L ab (Internal) : [address] ? ? S - Hbs 7.4 ? Final [place] Antibo mIU/mL Country dy, Hospital L ab Quant (Internal) : [address] 01/10/2018 Mumps Igg Ab, Serum S - Mumps negative ? Final [place] Ab, Country IgG, S Hospital L ab (Internal) : [address] ? ? S - Mumps 0.2 ? Final [place] IgG Country Antibo Hospital L ab dy (Internal) : Index [address] 01/10/2018 Measles Igg Ab, Serum S - Measl positive ? Final [place] es IgG Country Antibo Hospital L ab dy (Internal) : [address] 01/10/2018 Vzv (Varicella-zoster) S - Varic negative ne gative Final [place] Igg+igm Ab, Serum [facility] L ab Ab, (Internal) : IgM, S [address] ? ? S - Varic positive ? Final [facility] L ab Ab, (Internal) : IgG, S [address] ? ? S - Varic 4.8 ? Final [facility] IgG Hospital L ab Antibo (Internal) : dy [address] 01/10/2018 Tb (M Tuberculosis), - quant negative nega tive Final [place] Ifn-gamma Courtney, [facility] Gold (Internal) : plus [address] ? ? - TB1 0.01 ? Final [place] Ag IU/mL Country minus Hospital L ab Nil (Internal) : Result [address] ? ? - TB2 0.00 ? Final [place] Ag IU/mL Country minus Hospital L ab Nil (Internal) : Result [address] ? ? - Mitog >10.00 ? Final [place] en IU/mL Country minus Hospital L ab Nil (Internal) : Result [address] ? ? - Nil 0.01 ? Final [place] Result IU/mL [facility] Hospital L ab (Internal) : [address] 01/10/2018 Rubella Ab, Serum BLD - Rbla positive positiv e Final [facility] Hospital L ab (Internal) : [address] 07/19/2017 Venipuncture BLD ? Venpn ? ? Final [place] * [facility] Hospital L ab (Internal) : [address] 07/19/2017 CRP, High Sensitivity, S ? Rcrp 0.18 0.10 -0.30 Final [place] Serum or Plasma mg/dL mg/dL [facility] L ab (Internal) : [address] 07/19/2017 Lipid Panel, Serum S ? Chol 190 mg/dL 50-20 0 Final [place] mg/dL [facility] L ab (Internal) : [address] ? ? S ? Trig 131 mg/dL 10-150 Final [place] mg/dL [facility] L ab (Internal) : [address] ? ? S Low Hdl 31 mg/dL 40-60 Final [place] mg/dL [facility] Hospital L ab (Internal) : [address] ? ? S High Ldl 133 mg/dL 0-130 Final [place] mg/dL [facility] Hospital L ab (Internal) : [address] 07/19/2017 TSH, Serum or Plasma S ? Tsh 2.08 0.47-4 .68 Final [place] u[IU]/mL u[IU]/mL Count[facility] Hospital L ab (Internal) : [address] 02/21/2017 CMP, Serum or Plasma S High g/r 114 mg/dL 74- 106 Final [place] mg/dL [facility] Hospital L ab (Internal) : [address] ? ? S ? Bun 15 mg/dL 7-17 Final [place] mg/dL [facility] Hospital L ab (Internal) : [address] ? ? S ? Crea 0.80 0.52-1.04 Final [place] mg/dL mg/dL [facility] L ab (Internal) : [address] ? ? S ? Ca 8.8 mg/dL 8.4-10.2 Final [place] mg/dL [facility] Hospital L ab (Internal) : [address] ? ? S ? Na 142 137-145 Final [place] mmol/L mmol/L [facility] : [address] t ? ? S ? K 3.6 3.5-5.1 [place] mmol/L mmol/L [facility] : [address] t ? ? S ? Cl 107 98-107 [place] mmol/L mmol/L [facility] ([facility]) : [address] t ? ? S ? Tco2 23.0 22.0-30.0 Final [place] mmol/L mmol/L [facility] ([facility]) : [address] t ? ? S ? Tp 6.9 g/dL 6.3-8.2 Final [place] g/dL [facility] (Internal) : [address] t ? ? S ? Alb 4.2 g/dL 3.5-5.0 Final [place] g/dL [facility] ([facility] : [address] t ? ? S ? Tbil 0.4 mg/dL 0.2-1.3 Final [place] mg/dL [facility] (Internal) : [address] t ? ? S ? Alp 72 U/L 50-136 Final [place] U/L [facility] (Internal) : [address] t ? ? S ? Alt 20 U/L 9-52 U/L Final [place] (Sgpt) [facility] (Internal) : [address] t ? ? S ? Ast 32 U/L 14-36 U/L Final [place] (Sgot) [facility] (Internal) : [address] t 02/21/2017 CBC W/ Auto Diff BLD ? Wbc 9.8 5.0-10.0 F inal [place] 10*3/uL 10*3/uL [facility] ([facility] : [address] t ? ? BLD ? Rbc 4.32 4.10-5.30 Final [place] 10*6/uL 10*6/uL [facility] ([facility] : [address] t ? ? BLD ? Hgb 13.8 g/dL 12.0-16.0 Final Nort h g/dL [facility] (Internal) : [address] t ? ? BLD ? Hct 40.2 % 37.0-47.0 Final [place] % [facility] (Internal) : [address] t ? ? BLD ? Mcv 93.1 fL 80.0-96.0 Final [place] fL [facility] (Internal) : [address] t ? ? BLD ? Mch 31.9 pg 26.0-32.0 Final [place] pg [facility] (Internal) : [address] t ? ? BLD ? Mchc 34.3 g/dL 31.0-35.0 Final Nort h g/dL [facility] (Internal) : [address] t ? ? BLD ? Rdw 13.1 % 11.5-14.5 Final [facility] L ab (Internal) : [address] ? ? BLD ? Plt 270 130-450 Final [place] 10*3/uL 10*3/uL [facility] (Internal) : [address] ? ? BLD ? Anc 5.36 ? Final [place] 10*3/uL [facility] (Internal) : [address] ? ? BLD ? Neutr 54.5 % 40.0-75.0 Final [place] o [facility] L [facility] (Internal) : [address] ? ? BLD ? Lymph 38.3 % 20.0-50.0 Final [facility] L [facility] (Internal) : [address] t ? ? BLD ? [place] 5.7 % 2.0-10.0 Final [facility] L ab (Internal) : [address] t ? ? BLD ? Eos 1.0 % 1.0-6.0 % Final [facility] L ab (Internal) : [address] ? ? BLD ? Baso 0.3 % 0.0-1.0 % Final [facility] L ab (Internal) : [address] t ? ? BLD ? Ig 0.2 % 0.0-0.9 % Final [facility] L [facility] (Internal) : [address] t 12/06/2016 Folate, Serum S ? Folat >14.00 2.76-20.0 Fin [facility] e NG/mL 0 NG/mL [facility] L ab (Internal) : [address] t 12/06/2016 Vitamin B12, Serum S ? Vit 372.0 239.0-93 1 Final [place] B12 pg/mL .0 pg/mL [facility] L ab (Internal) : [address] t 12/06/2016 TSH, Serum or Plasma S ? Tsh 1.38 0.47-4 .68 Final [place] u[IU]/mL u[IU]/mL [facility] : [address] 11/27/2016 Venipuncture BLD ? Venpn ? ? Final [facility] L ab (Internal) : [address] 11/27/2016 Rf (Rheumatoid BLD ? Rf negative negative F [facility] Factor), Serum < 10 < 10 Co untry [IU]/mL [IU]/mL Hospital Lab (Internal) : [address] 11/27/2016 GARRETT (Antinuclear S ? GARRETT negative negat F [facility] Antibodies) [facility] [address] 11/27/2016 CBC W/ Auto Diff BLD ? Wbc 7.6 5.0-10.0 F inal [place] 10*3/uL 10*3/uL [facility] L ab (Internal) : [address] ? ? BLD ? Rbc 4.75 4.10-5.30 Final [place] 10*6/uL 10*6/uL [facility] L ab (Internal) : [address] ? ? BLD ? Hgb 15.3 g/dL 12.0-16.0 Final Nort h g/dL [facility] L ab (Internal) : [address] ? ? BLD ? Hct 44.6 % 37.0-47.0 Final [facility] L ab (Internal) : [address] ? ? BLD ? Mcv 93.9 fL 80.0-96.0 Final [facility] L ab (Internal) : [address] ? ? BLD High Mch 32.2 pg 26.0-32.0 Final [facility] L ab (Internal) : [address] ? ? BLD ? Mchc 34.3 g/dL 31.0-35.0 Final Nort h g/dL [facility] L ab (Internal) : [address] ? ? BLD ? Rdw 13.0 % 11.5-14.5 Final [facility] L ab (Internal) : [address] ? ? BLD ? Plt 300 130-450 Final [place] 10*3/uL 10*3/uL [facility] L ab (Internal) : [address] ? ? BLD ? Anc 4.29 ? Final [place] 10*3/uL [facility] L ab (Internal) : [address] ? ? BLD ? Neutr 56.2 % 40.0-75.0 Final [place] o [facility] L ab (Internal) : [address] ? ? BLD ? Lymph 34.8 % 20.0-50.[address] [facility] L ab (Internal) : [address] ? ? BLD ? [place] 6.6 % 2.0-10.[address] [facility] L ab (Internal) : [address] ? ? BLD ? Eos 1.3 % 1.0-6.0 % Final [facility] L ab (Internal) : [address] ? ? BLD ? Baso 0.8 % 0.0-1.0 % Final [facility] L ab (Internal) : [address] ? ? BLD ? Ig 0.3 % 0.0-0.9 % Final [facility] L ab (Internal) : [address] 11/27/2016 ESR (Erythrocyte BLD ? Esr 3 mm/h 0-30 mm/h Final [place] Sedimentation Rate), [facility] L ab (Internal) : [address] 11/27/2016 CRP, High Sensitivity, S ? Rcrp 0.19 0.10 -0.30 Final [place] Serum or Plasma mg/dL mg/dL [facility] L ab (Internal) : [address] Past Encounters 10/12/2021 Removal of Intrauterine Device; Amenorrh ea Jeremiah Lopez MD: [address] [place] [phone], Ph. 09/28/2021 Abdominal Pain FRANCES CanoC: [address] [place] [address], Ph. 08/31/2021 Abdominal Pain FRANCES CanoC: [address] [place] [address], Ph. 04/27/2021 Cervical Radiculopathy; Injury of Scapul ar Region; Thoracic Back Pain Eliu Wang PA-C: [address] [place] [phone], Ph. Social History Tobacco Smoking Status Heavy Tobacco Smoker (1 pack Notes: half a pack a day per day) Vaccine List Vaccine Type COVID-19 (SARS-COV-2) vaccine, unspecifi ed 07/17/2021 COVID-19, mRNA, LNP-S, PF, 100 mcg/0.5 m L dose (Moderna) 07/01/2020?0.5 mL 07/30/2020?0.5 mL Hep B, adult 02/15/2018?1 mL influenza, seasonal, injectable 03/30/2018?0.5 mL 03/26/2019?0.5 mL 04/15/2020?0.5 mL 04/21/2021 MMR 02/15/2018?0.5 mL 03/21/2018?0.5 mL Tdap 09/15/2017?0.5 mL Plan of Care Reminders Provider Appointments None ? ? recorded. Lab None ? ? recorded. Referral None ? ? recorded. Procedures None ? ? recorded. Surgeries None ? ? recorded. Imaging None ? ? recorded. Vitals 10/12/2021 03:20PM Office 20 Weight Blood Pressure 64.73 kg 122/78 mm[Hg] 08/31/2021 03:00PM Follow Up 20 Blood Pressure 126/76 mm[Hg] 04/27/2021 11:00AM Same Day 20 Blood Pressure 128/72 mm[Hg] 11/13/2019 09:20AM Meeting 20 Height Blood Pressure 158.75 cm 130/70 mm[Hg] 01/05/2019 07:40AM Acute 20 Height Blood Pressure 158.75 cm 128/84 mm[Hg] 11/02/2018 11:00AM Same Day 20 Height Blood Pressure 158.75 cm 130/80 mm[Hg] 03/16/2018 08:00AM Follow Up 20 Height Weight BMI Blood Pressure 158.75 cm 65.32 kg 25.9 kg/m2 130/80 mm[Hg] 09/30/2017 Height Weight Blood Pressure 158.75 cm 67.59 kg 138/88 mm[Hg] 09/15/2017 Height Weight Blood Pressure 158.75 cm 68.95 kg 120/80 mm[Hg] 03/03/2017 Height Weight Blood Pressure 158.75 cm 65.77 kg 140/80 mm[Hg] 02/21/2017 Height Weight Blood Pressure 158.75 cm 66.22 kg 144/74 mm[Hg] 12/06/2016 Blood Pressure 160/70 mm[Hg] 11/24/2016 Height Weight Blood Pressure 158.75 cm 63.05 kg 130/90 mm[Hg] 10/05/2016 Height Weight Blood Pressure 158.75 cm 68.04 kg 130/80 mm[Hg] 07/12/2016 Height Weight Blood Pressure 158.75 cm 66.22 kg 154/82 mm[Hg] 07/07/2016 Height Weight Blood Pressure 158.75 cm 66.22 kg 140/80 mm[Hg] 12/18/2015 Height Weight Blood Pressure 158.75 cm 63.05 kg 120/80 mm[Hg] 11/11/2015 Height Weight Blood Pressure 158.75 cm 62.6 kg 150/80 mm[Hg] 05/13/2015 Blood Pressure 118/82 mm[Hg] 04/08/2015 Weight Blood Pressure 70.31 kg 124/76 mm[Hg] 03/25/2015 Height Weight Blood Pressure 158.75 cm 69.4 kg 118/80 mm[Hg] 08/07/2014 Blood Pressure 128/70 mm[Hg] 07/19/2013 Height Weight Blood Pressure 158.75 cm 66.22 kg 112/60 mm[Hg] 01/10/2013 Height Weight Blood Pressure 158.75 cm 68.04 kg 114/72 mm[Hg] 12/07/2012 Weight Blood Pressure 68.49 kg 112/64 mm[Hg] 11/21/2012 Blood Pressure 134/76 mm[Hg] 11/15/2012 Height Weight Blood Pressure 158.75 cm 67.36 kg 122/78 mm[Hg] 07/20/2012 Height Weight Blood Pressure 158.75 cm 68.04 kg 134/80 mm[Hg] 07/17/2012 Height Weight Blood Pressure 158.75 cm 67.13 kg 110/78 mm[Hg] 05/05/2012 Height Weight Blood Pressure 158.75 cm 67.59 kg 116/64 mm[Hg] 04/17/2012 Height Weight Blood Pressure 158.75 cm 67.59 kg 118/62 mm[Hg] 01/27/2012 Height Weight Blood Pressure 158.75 cm 68.95 kg 112/60 mm[Hg] 01/06/2012 Height Weight Blood Pressure 158.75 cm (1) 68.95 kg (1) 156/76 mm[Hg] (2) 68.49 kg (2) 110/60 mm[Hg] 11/01/2011 Height Weight Blood Pressure 160.02 cm 69.4 kg 118/64 mm[Hg] 10/06/2011 Weight Blood Pressure 69.4 kg 136/72 mm[Hg] 05/25/2011 Height Weight Blood Pressure 160.02 cm 68.95 kg 120/68 mm[Hg] 05/20/2011 Height Weight Blood Pressure 158.75 cm 68.72 kg 142/76 mm[Hg] 01/26/2011 Weight Blood Pressure 65.54 kg 116/80 mm[Hg] 09/23/2010 Weight Blood Pressure 65.54 kg 148/78 mm[Hg] 09/02/2010 Weight Blood Pressure 67.13 kg 114/78 mm[Hg] 07/29/2010 Blood Pressure 132/82 mm[Hg] 07/15/2010 Weight Blood Pressure 67.13 kg 118/78 mm[Hg] 07/06/2010 Weight Blood Pressure 67.13 kg 128/80 mm[Hg] 07/01/2010 Weight Blood Pressure 67.13 kg 140/78 mm[Hg] 11/27/2008 Height Weight Blood Pressure 158.75 cm 67.13 kg 136/66 mm[Hg] 10/17/2008 Height Weight Blood Pressure 158.75 cm 67.13 kg 112/60 mm[Hg] 08/22/2008 Height Weight Blood Pressure 158.75 cm 66.68 kg 120/62 mm[Hg] 08/07/2008 Height Weight Blood Pressure 158.75 cm 68.95 kg 110/60 mm[Hg] 07/31/2008 Height Weight Blood Pressure 158.75 cm 67.13 kg 120/72 mm[Hg] 08/10/2007 Height Weight Blood Pressure 159 cm 66.68 kg 114/62 mm[Hg] 11/02/2005 Height Weight Blood Pressure 158.75 cm 60.78 kg 120/70 mm[Hg] 06/01/2004 Height Weight Blood Pressure 160.02 cm 62.14 kg 110/64 mm[Hg]
--- OUTSIDE RECORDS SUMMARY | 2021-11-09 01:22 | XMS_ITS | Encounter Summary ---
:1970 Author Care Team Providers Name Role Phone Mojgan Wang PA-C Primary Care Provider Unavailable Estefanisylvie Saul Executive Coordinator [phone] Reason for Visit lab follow-up Assessment and Plan 1. Abdominal pain and rectal bleeding. ? venipuncture Discussion Note: None recorded.Patient educational handouts: No information available. Plan of Care Reminders Provider Appointments e 20 Jeremiah Correia MD 12/25/2021 3:30PM Lab Venipuncture P_nc Primary 09/28/2021 Care [place] Referral None recorded. ? ? Procedures None recorded. ? ? Surgeries None [...] prn nausea Medications Administered None recorded. Vitals None recorded. Results Lab Results Date Name Specimen Result Interpretation Description Value Range Status Address ? 09/28/2021 Venipuncture ? Location Right ? ? P_nc Primary Care Antecubital [place]: [address] [place], [place] ? ? ? Needle 21g ? ? P_nc Prim barb Care Vacutainer [place]: [address] [place], [place] ? ? ? Number of 1 ? ? P_nc P rimary Care Attempts [place]: [address] [place], [place] ? ? ? Successful Yes ? ? P_nc Primary Care [place]: [address] [place], [place] ? ? ? Dressing Pressure ? ? P_nc Primary Care Band-aid [place]: Applied [address], [place] ? ? ? Initials hj ? ? P_nc Pr imary Care [place]: [address] [place], [place] Allergies Code Code System Name Reaction [...] not avai lable Notes: of cervix at [facility] Vaccine List Vaccine Type COVID-19 [...] alone or with others? with others Notes: Jose band and stepson What is your level [...] N abroad? 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 Past Encounters 09/28/2021 Abdominal Pain Mojgan Wang PA-C: [address] [place] [address], Ph. 08/31/2021 Abdominal Pain Mojgan Wang PA-C: [address] [place] [address], Ph. History of Present Illness None recorded. Review of Systems None recorded. Physical Exam None recorded.
[2021-11-09 12:19] LABS: Source Nasal/Nares
[2021-11-09 17:02] LABS: COVID-19 PCR Negative (Negative)
== END 2021-11-09 01:21 | disposition home or self-care (01) ==
LOC: LBO 01:20
PROVIDERS: PCP Physician Assistant Medical; Visit Provider Surgery
DX: Z20.822 Contact with and (suspected) exposure to COVID-19 (principal); Z01.818 Encounter for other preprocedural examination
CPT/HCPCS: 87635

== ENCOUNTER 2021-11-11 11:10 | Day surgery (SDC) | payer OTHER, SELFPAY ==
--- NOTE | 2021-11-11 07:02 | COLE_ITS ---
Colonoscopy Report Date of procedure: 11/11/21 Pre-op diagnosis general: abdominal pain Post-op diagnosis procedure note: other (polyps and mild diverticulosis) Procedure: Colonoscopy with polypectomy Surgeon: Mary Cameron Anesthesia Type: General:No Airway Estimated blood loss (mL): 3 Pathology: other (sigmoid polyps and rectal polyps) Complications: None Disposition: same day Indications: Ms. Morales is a pleasant 51-year-old female with abdominal pain and bright red blood per rectum which started 6 weeks ago.? 2 weeks ago the pain was quite severe and woke her up from sleep.? She had night sweats at that time as well as a lot of hematochezia and increased mucus per rectum.? On examination today she is more tender in the right lower quadrant than she is in the left lower quadrant.? She does have urgency.? Differential includes Crohn's or ulcerative colitis, rectal mass.? Because of how tender she is today I think it would be prudent to do a CAT scan first make sure there is not a lot of inflammation which would increase her risk for a perforation at the time of a colonoscopy.?Inflammation noted on CT scan proceed with flex sig Prep: Miralax/Dulcolax Procedure Start Time: 13:05 Findings: multiple small polyps mild diverticulosis internal hemorrhoids Procedure Description: After informed consent was obtained the patient was taken to the procedure room and placed in a left decubitous position. Monitors were applied and a time out was done. The patients name, date of , procedure, allergies to m edications and metal in their body was reviewed. The patient was then sedated. Once sedated and comfortable a rectal exam was done. External exam was normal. Internal exam revealed a normal sphincter tone and no palpable masses. The scope was then introduced and retro-flexed. Grade 1 internal hemorrhoids were noted. No polyps or masses were identified on retro-flexion. The scope was then advanced to the splenic flexure without difficulty. The prep was good. The scope was then slowly retracted back into the rectum. Polyps were removed with cold forceps in the sigmoid colon x2 and rectum x4. There was no diverticulosis noted. The scope was removed and the patient was woken up and taken back to Same day surgery in stable condition. The patient tolerated the procedure well and there were no immediate complications. Follow up: The patient should follow up in 1 year for full colonoscopy.
--- NOTE | 2021-11-11 07:03 | W.PM.DSUDISC ---
Discharge Plan Disposition Patient Disposition: HOME Condition: Good Discharge Details Reason For Visit: Flex sig Attending Provider: Mary Cameron Primary Care Provider: Mojgan Wang Home Meds and New Rx's Prescriptions: Continued albuterol sulfate 90 mcg/actuation HFA aerosol inhaler 2 puff inhalation Q6H PRN0RF Combivent Respimat 20-100 mcg/actuation mist 1 puff inhalation QID 0RF Rx Instructions: space evenly during waking hours ibuprofen 600 mg tablet 600 mg PO Q6H PRN0RF Mirena 20 mcg/24 hours (7 yrs) 52 mg intrauterine device 1 insert intrauterine ONCE 0RF Label Comments: Pt states this was removed 2-3 weeks ago. Blood test to show Menopausal. Rx Instructions: as a single dose nicotine (polacrilex) 2 mg gum 2 mg buccal Q2H 0RF ondansetron 4 mg tablet,disintegrating 4 mg PO Q8H 0RF Discharge Instructions Instructions: Diverticulosis (DC), Colorectal Polyps (DC) Additional Instructions: Findings: polyps mild diverticulosis Follow up: 1 year for full diverticulosis Please call if you develop: fevers >101.5 Nausea or Vomiting Abdominal pain that is not transient Rectal bleeding that is more then a tbsp A hard abdomen and inability to pass gas DAY SURGERY UNIT POST ENDOSCOPY INSTRUCTIONS Instructions for everyone who is given Anesthesia: For your safety, please do the following for the next 24 Hours: a. Do not drive or operate dangerous equipment b. Do not drink alcohol beverages or use any recreational drugs for the first 24 hours or while taking pain medications. The medications in your body may have a reaction that can be dangerous. c. Do not make any important decisions or sign any important papers 1. Generally there are no restrictions on your activity after a day or so has gone by, but you may feel a bit fatigued for a few days. 2. After you arrive home you may have a light meal and return to a normal diet as you can tolerate it without feeling sick to your stomach. 3. After surgery, you may feel pain or discomfort. This should be only transient, but if it persists please contact your doctor. 4. If there are any questions regarding the findings of your procedure, please feel free to contact your doctor. 6. If you are unable to contact your doctor with a problem, contact the hospital at [phone]. 7. Continue all your regular medications unless directed otherwise. I understand the above instructions and have no questions. Signature of Patient or Responsible Adult Escort Date/Time Name of Responsible Adult Escort Signature of Nurse Date/Time Activity:: Activity as Tolerated Diet:: As Tolerated Discharge Orders Discharge Orders: Discharge Order (Routine); Ordered 11/11/21 Ordered By: Mary Cameron
--- NOTE | 2021-11-11 07:04 | HPE_ITS ---
Assessment and Plan Assessment and plan (1) BRBPR (bright red blood per rectum): Status: Acute Assessment and plan: Ms. Morales is a pleasant 51-year-old female with abdominal pain and bright red blood per rectum which started 6 weeks ago.? 2 weeks ago the pain was quite severe and woke her up from sleep.? She had night sweats at that time as well as a lot of hematochezia and increased mucus per rectum.? On examination today she is more tender in the right lower quadrant than she is in the left lower quadrant.? She does have urgency.? Differential includes Crohn's or ulcerative colitis, rectal mass.? Because of how tender she is today I think it would be prudent to do a CAT scan first make sure there is not a lot of inflammation which would increase her risk for a perforation at the time of a colonoscopy.? I will order that CT scan stat up at [facility].? We will do it with IV and oral contrast.? Once I have the results I will call the patient and discussed the results and further testing or next steps.? In the meantime I would like her to eat a low residual diet just in case that she does have a lot of inflammation in her intestine.? If her symptoms get worse she is to go to the emergency department either at [facility] or here at [facility] for more emergent treatment.? The patient understands and is agreement with the plan. (2) Left lower quadrant pain: Status: Acute History of Present Illness Narrative: Ms. Morales is a very pleasant 51-year-old female who is here today because of abdominal pain.? She states that about 6 weeks ago she noticed a lot of mucus and bright red blood when she went to the bathroom.? She had some loose stools as well.? That seemed to settle down and then about 2 weeks ago she woke up with severe abdominal pain that was lower in the abdomen.? She had night sweats and blood and mucus for 48 hours.? She complains of pressure in the abdomen as well as bloating.? She has lower abdominal pain that is intermittent at this point.? She has urgency.? She still feels like there is a lot of mucus with her bowel movements.? There is no family history of colon or rectal cancer that she is aware of.? No family history of Crohn's or ulcerative colitis that she is aware of.? She has no history of diverticulitis.? She does have some epigastric burning pain intermittently usually if she eats a heavy meal or a spicy meal.? She is not on an antacid daily.? If she eats and then bends at the waist she will regurgitate her food sometimes.? She has never had a colonoscopy before. Review of Systems All systems reviewed & are unremarkable except as noted in HPI and below PFSH All Active Problems COPD (chronic obstructive pulmonary disease) (Chronic) Nicotine dependence (Acute) BRBPR (bright red blood per rectum) (Acute) Black tarry stools (Acute) Left lower quadrant pain (Acute) Abdominal pain (Acute) Medical History Herpes zoster Mild asthma Social History Smoking/Tobacco Use Status: Current every day Smoking risk assessment performed?: Yes Alcohol Intake: current Alcohol Intake frequency: holidays/special occasions only Drug use: Never Substance use type: does not use Current gender identity: female Do you feel safe at home: Yes Do you feel safe in your relationship?: Yes Meds Allergies and Home Medications Allergies Allergy/AdvReac Type Severity Reaction Status Date / Time metronidazole [From Flagyl] Allergy Intermediate Hives Verified 11/11/21 11:35 Home Medications Medication Instructions Recorded Confirmed Type albuterol sulfate 90 mcg/actuation 2 puff INHALATION Q6H PRN 09/03/21 11/11/21 History aerosol inhaler ibuprofen 600 mg tablet 600 mg PO Q6H PRN 09/03/21 11/11/21 History ipratropium 20 mcg-albuterol 100 1 puff INHALATION QID 09/03/21 11/11/21 History mcg/actuation mist for inhalation (Combivent Respimat) levonorgestrel 20 mcg/24 hours (7 1 insert INTRAUTERINE ONCE 09/03/21 11/11/21 History yrs) 52 mg intrauterine device (Mirena) nicotine (polacrilex) 2 mg gum 2 mg BUCCAL Q2H 09/03/21 11/11/21 History ondansetron 4 mg disintegrating 4 mg PO Q8H 09/03/21 11/11/21 History tablet Exam Const General: comfortable and no acute distress [facility] Head: normocephalic and atraumatic Resp Effort & Inspection: normal respiratory effort Auscultation: clear to auscultation bilaterally Cardio Rate: regular rate Rhythm: regular rhythm
[2021-11-11 11:23] VITALS: BP 144/80; PULSE 98; RESP 20; TEMP 36.8; O2SAT 98
[2021-11-11] MEDS: Lactated Ringers 1,000 ML 80 ML IV (11:51)
--- NOTE | 2021-11-11 12:11 | W.ANESPRE ---
General Info Date of Service Date Performed: 11/11/21 Height: 5 ft 2 in Weight: 63.5 kg Body Mass Index (BMI): 25.6 Surgical Procedure: Operation Date: 11/11/21 13:10 Proposed Procedure Side Surgeon p Flexible Sigmoidoscopy Mary Cameorn MD Meds Allergies and Home Medications Allergies Allergy/AdvReac Type Severity Reaction Status Date / Time metronidazole [From Flagyl] Allergy Intermediate Hives Verified 11/11/21 11:35 Home Medication Medication Instructions Recorded albuterol sulfate 90 mcg/actuation 2 puff INHALATION Q6H PRN 09/03/21 aerosol inhaler ibuprofen 600 mg tablet 600 mg PO Q6H PRN 09/03/21 ipratropium 20 mcg-albuterol 100 1 puff INHALATION QID 09/03/21 mcg/actuation mist for inhalation (Combivent Respimat) levonorgestrel 20 mcg/24 hours (7 1 insert INTRAUTERINE ONCE 09/03/21 yrs) 52 mg intrauterine device (Mirena) nicotine (polacrilex) 2 mg gum 2 mg BUCCAL Q2H 09/03/21 ondansetron 4 mg disintegrating 4 mg PO Q8H 09/03/21 tablet Current Visit Medications: Current Medications Generic Name Dose Route Start Last Admin Trade Name Freq PRN Reason Stop Dose Admin Hyoscyamine Sulfate 0.125 mg 11/11/21 07:06 Hyoscyamine 0.125 Mg Sl/Oral/Chew SL DIRECTED PRN Ringer's Solution 1,000 mls @ 80 mls/hr 11/11/21 06:00 11/11/21 11:51 IV 12/10/21 23:59 80 mls/hr INFUSION MEET Administration IV Miscellaneous Supplies 1 each 11/11/21 06:00 Iv Access IV 12/10/21 23:59 DIRECTED MEET Ondansetron HCl 4 mg 11/11/21 07:06 Ondansetron 4 Mg/2 Ml Vial IVP Q4H PRN PRN Nausea / Vomiting Sodium Biphosphate/Sodium Phosphate 133 ml 11/11/21 12:00 11/11/21 11:50 Na Phosphate Enema 133 Ml Btl OH 11/11/21 14:00 1 btl DIRECTED MEET Administration Sodium Chloride 0 ml 11/11/21 06:00 Normal Saline Flush 10 Ml Syr IV 12/10/21 23:59 PRN PRN Sodium Chloride 0 ml 11/11/21 06:00 Normal Saline 10 Ml Vial IJ 12/10/21 23:59 DIRECTED PRN Sterile Water 0 ml 11/11/21 06:00 Water,Injection,Sterile 10 Ml Vial IJ 12/10/21 23:59 DIRECTED PRN PFSH Active Problems Active Problems: Problem Status Onset Code COPD (chronic obstructive pulmonary disease) J44.9 Nicotine dependence F17.200 BRBPR (bright red blood per rectum) K62.5 Black tarry stools K92.1 Left lower quadrant pain R10.32 Abdominal pain R10.9 Medical History Medical History Herpes zoster Mild asthma Medical History Comments:: PONV, only 2 surgeries both for ovarian cyst excisions.HE Tobacco Smoking/Tobacco Use Status: Current every day Alcohol Alcohol Intake: current Alcohol intake frequency: holidays/special occasions only Substance Use Substance use: Never Substance use type: does not use Vital Signs and Lab Results Vital Signs Most Recent Vital Signs in EMR: Most Recent Vital Signs Temp Pulse Resp BP Pulse Ox 36.8 C 98 H 20 144/80 H 98 11/11/21 11:23 11/11/21 11:23 11/11/21 11:23 11/11/21 11:23 11/11/21 11:23 Lab Results Blood Type / Crossmatch: No Data to Display Complete Blood Count: No Data to Display Complete Metabolic Panel: No Data to Display Liver Function Panel: No Data to Display Coagulation Panel: No Data to Display Cardiac Panel: No Data to Display Arterial Blood Gas: No Data to Display Venous Blood Gas: No Data to Display Pancreas Panel: No Data to Display Thyroid Panel: No Data to Display Infectious Disease: Coronavirus (COVID-19)(PCR) Negative (Negative) 11/09/21 08:51 11/09/21 Coronavirus 2019 Source Nasal/Nares 11/09/21 08:51 11/09/21 Blood Cultures: No Data to Display Toxicology Panel: No Data to Display Panel: No Data to Display Anesthesia Assessment and Plan Anesthesia History Personal History: PONV Family History: No Family History of Anesthesia Complications Exercise Tolerance Exercise Tolerance: Metabolic Equivalents>4 Pertinent Negatives Pertinent Negatives: No Symptoms of GERD, No Major Cardiovascular Symptoms or Complaints, No Major Pulmonary Symptoms or Complaints and No History of CVA/TIA Cardiac & Pulmonary Exam Cardiac Exam: Normal S1/S2 Heart Sounds Pulmonary Exam: Wheezing Present (Exp wheeze) Implantable Cardiac Device Does patient have a Pacemaker or an ICD?: No Airway Exam Known Difficult Airway: No Mallampati Class: 2 Mouth Opening: Normal (> 3cm) Thyromental Distance: Greater than 3 cm Neck Range of Motion: Full ROM Neck Circumference: Normal Teeth Condition: Normal Dentition ASA Classification ASA Score: ASA 2 Emergency Case?: No NPO Status NPO Status: NPO Clears >2 hours, Solids >8 hours Status Status: Not Relevant due to Medical History Anesthesia Plan Resuscitation Status: Full Code Anesthesia Technique: General Anesthesia Airway Planned: Natural Airway Monitors Used: Standard Monitors
[2021-11-11 12:12] VITALS: BMI 25.6
--- NOTE | 2021-11-11 13:09 | BOWEL_PTH ---
PATIENT: Praveena Morales LOC: [facility] U#:[id number] AGE/SX: 51/F ROOM: RE11/11/[address]: Mary Cameron MD : 1970 BED: DIS: 11/11/2021 SPEC #: [id number] RECD: 11/12/21 11:39 STATUS: [facility] REQ #: [id number] CHERI: 11/11/21 13:[address]: Mary Cameron DEPT: Surgical Specimen RECD BY: Salome Rinaldi ENTERED: 11/12/21 11:39 SP TYPE: Bowel OTHR DR: Mojgan Wang Tissues: 1 - BIOPSY BOWEL 2 - BIOPSY BOWEL Procedures: GROSS AND MICRO LEVEL 4 Comments: [id number]
[2021-11-11 13:27] VITALS: BP 138/80; PULSE 94; RESP 18; TEMP 36.6; O2SAT 96
--- NOTE | 2021-11-11 13:50 | W.ANESPOSTOP ---
Postoperative Evaluation Date, Time and Location Date Performed: 11/11/21 Time Performed: 13:50 Patient Location: Day Surgery Unit Vital Signs Most Recent Imported Vital Signs: Most Recent Vital Signs Temp Pulse Resp BP Pulse Ox 36.6 C 94 H 18 138/80 96 11/11/21 13:27 11/11/21 13:27 11/11/21 13:27 11/11/21 13:27 11/11/21 13:27 Pain Score Most Recent Pain Score: Most Recent Pain Score Pain Level 0 11/11/21 13:27 Assessment Mental Status: Awake (Alert & Oriented to Patient Baseline) Airway and Respiratory Function: Patent airway with normal (patient baseline) respiratory exam Cardiovascular Function: Hemodynamically Stable Hydration Status: Adequately Hydrated Nausea & Vomiting: No Nausea or Vomiting Pain: Pt. Denies Any Pain Peripheral Nerve Block: Patient did not receive a nerve block
[2021-11-11 13:59] VITALS: BP 122/79; PULSE 93; RESP 16; TEMP 36.4; O2SAT 95
== END 2021-11-11 14:16 | disposition home or self-care (01) ==
LOC: SUR 11:11
PROVIDERS: PCP Physician Assistant Medical; Visit Provider Surgery
PROC: 0DJD8ZZ Inspection of Lower Intestinal Tract, Via Natural or Artificial Opening Endoscopic (ICD-10-PCS; CPT 45330; principal; 2021-11-11 13:00)
DX: K62.5 Hemorrhage of anus and rectum (principal); R10.32 Left lower quadrant pain; K63.5 Polyp of colon; K64.0 First degree hemorrhoids; K62.1 Rectal polyp
CPT/HCPCS: 45380; 88305; J2405; J2704

== ENCOUNTER 2022-12-10 07:35 | Day surgery (SDC) | payer OTHER, SELFPAY ==
--- NOTE | 2022-12-10 07:12 | W.ANESPRE ---
General Info Date of Service Date Performed: 12/10/22 Height: 5 ft 2 in Weight: 68.719 kg Body Mass Index (BMI): 27.7 Surgical Procedure: Operation Date: 12/10/22 08:35 Proposed Procedure Side Surgeon p Colonoscopy Jeremiah Hines MD Meds Allergies and Home Medications Allergies Allergy/AdvReac Type Severity Reaction Status Date / Time metronidazole [From Flagyl] Allergy Intermediate Hives Verified 12/10/22 07:50 Home Medication Medication Instructions Recorded albuterol sulfate 90 mcg/actuation 2 puff inhalation Q6H PRN 09/03/21 aerosol inhaler ibuprofen 600 mg tablet 600 mg PO Q6H PRN 09/03/21 levonorgestrel 21 mcg/24 hours (8 1 insert intrauterine ONCE 09/03/21 yrs) 52 mg intrauterine device (Mirena) ondansetron 4 mg disintegrating 4 mg PO Q8H 09/03/21 tablet bisacodyl 5 mg tablet,delayed 5 mg PO ONCE #4 tabs 12/02/22 release (Dulcolax (bisacodyl)) montelukast 10 mg tablet 10 mg PO QPM 12/02/22 polyethylene glycol 3350 17 17 g PO ONCE #238 grams 12/02/22 gram/dose oral powder Current Visit Medications: Current Medications Generic Name Dose Route Start Last Admin Trade Name Freq PRN Reason Stop Dose Admin Ringer's Solution 1,000 mls @ 80 mls/hr 12/10/22 06:00 IV 12/10/22 23:59 INFUSION MEET IV Miscellaneous Supplies 1 each 12/10/22 06:00 Iv Access IV 12/10/22 23:59 DIRECTED MEET Sodium Chloride 0 ml 12/10/22 06:00 Normal Saline Flush 10 Ml Syr IV 12/10/22 23:59 PRN PRN Sodium Chloride 0 ml 12/10/22 06:00 Normal Saline 10 Ml Vial IJ 12/10/22 23:59 DIRECTED PRN Sterile Water 0 ml 12/10/22 06:00 Water,Injection,Sterile 10 Ml Vial IJ 12/10/22 23:59 DIRECTED PRN PFSH Active Problems Active Problems: Problem Status Onset Code Hyperplastic colon polyp K63.5 COPD (chronic obstructive pulmonary disease) J44.9 Nicotine dependence F17.200 BRBPR (bright red blood per rectum) K62.5 Black tarry stools K92.1 Left lower quadrant pain R10.32 Abdominal pain R10.9 Medical History Medical History Herpes zoster Mild asthma Medical History Comments:: PONV, only 2 surgeries both for ovarian cyst excisions.HE Surgical History Surgical History History of colonoscopy (~11/2021) Tobacco Smoking/Tobacco Use Status: Current every day Tobacco Type: cigarettes Years smoked: 30 Alcohol Alcohol Intake: current Alcohol intake frequency: holidays/special occasions only Substance Use Substance use: Never Substance use type: does not use Vital Signs and Lab Results Lab Results Blood Type / Crossmatch: No Data to Display Complete Blood Count: No Data to Display Complete Metabolic Panel: No Data to Display Liver Function Panel: No Data to Display Coagulation Panel: No Data to Display Cardiac Panel: No Data to Display Arterial Blood Gas: No Data to Display Venous Blood Gas: No Data to Display Pancreas Panel: No Data to Display Thyroid Panel: No Data to Display Infectious Disease: No Data to Display Blood Cultures: No Data to Display Toxicology Panel: No Data to Display Panel: No Data to Display Anesthesia Assessment and Plan Anesthesia History Personal History: No History of Anesthesia Complications Family History: No Family History of Anesthesia Complications Exercise Tolerance Exercise Tolerance: Metabolic Equivalents>4 Pertinent Negatives Pertinent Negatives: No Symptoms of GERD, No Major Cardiovascular Symptoms or Complaints and No History of CVA/TIA Cardiac & Pulmonary Exam Cardiac Exam: Normal S1/S2 Heart Sounds Pulmonary Exam: Clear Bilateral Breath Sounds Implantable Cardiac Device Does patient have a Pacemaker or an ICD?: No Airway Exam Known Difficult Airway: No Mallampati Class: 2 Mouth Opening: Normal (> 3cm) Thyromental Distance: Greater than 3 cm Neck Range of Motion: Full ROM Neck Circumference: Normal Teeth Condition: Normal Dentition and Generalized Poor Dentition ASA Classification ASA Score: ASA 2 Emergency Case?: No NPO Status NPO Status: NPO Clears >2 hours, Solids >8 hours Status Status: Not Relevant due to Medical History Anesthesia Plan Resuscitation Status: Full Code Anesthesia Technique: General Anesthesia Airway Planned: Natural Airway Monitors Used: Standard Monitors
[2022-12-10 07:14] VITALS: BMI 27.7
[2022-12-10 07:44] VITALS: BP 146/92; PULSE 99; RESP 20; TEMP 36.5; O2SAT 98
[2022-12-10] MEDS: Lactated Ringers 1,000 ML 80 ML IV (07:58)
--- NOTE | 2022-12-10 09:03 | W.COLOREPORT ---
Date of service: 12/10/22 Time of Service: 09:04 Colonoscopy Report Procedure Description: Procedures performed: 1. Colonoscopy with cold forceps polypectomy x3 2. Cold forceps biopsy Preoperative diagnosis: Screening colonoscopy Postoperative diagnosis: Colon polyps, mild sigmoid diverticulosis Surgeon: Marilee Hines Anesthesia: Delta Indication for procedure: Patient is a 52-year-old woman who has had the occasional bout of bleeding per rectum as well as colitis episodes on a few occasions. She has never had a full colonoscopy but has had a sigmoidoscopy which found hyperplastic polyps. She does not have a family history of colon cancer. Findings: The terminal ileum appeared normal. Cold forceps biopsies were taken here to rule out IBD (not suspected). The right and transverse colon's were normal. No inflammation. It took random colon biopsies because of the history of colitis. In the sigmoid colon there are scattered diverticular changes but overall mild. No active diverticulitis or stricture or fibrosis. Hyperplastic?appearing polyps are present in the sigmoid colon and in the rectum. The 3 largest of these were removed with cold forceps technique to confirm benign histology. Surveillance/follow-up recommendations: Pending path results but probably 10 years for colorectal cancer surveillance. As long as the polyps are hyperplastic and the biopsies do not show IBD. Complications: None Blood loss: Minimal Specimens:?? YES Quality of Prep:?? Good Procedure in detail: Written consent was obtained from the patient who was in agreement with the risks, benefits and indications of the procedure.? We went to the endoscopy suite and laid the patient in left lateral decubitus position.? Anesthesia was administered which was tolerated well.? A timeout was performed and when we are all in agreement we began the procedure. Digital rectal exam and visual examination was performed and within normal limits.? A well?lubricated colonoscope was advanced without difficulty all the way to the cecum identified by the ileocecal valve, and triangular folds and appendiceal orifice.? The terminal ileum was deeply intubated and look normal. The scope was then slowly withdrawn.?? Retroflexion was performed in the rectum.? The findings/interventions are noted above. The scope was then removed and the patient tolerated the procedure well and was then taken back to the PACU in hemodynamically stable condition.
--- NOTE | 2022-12-10 09:35 | BOWEL_PTH ---
PATIENT: Praveena Morales LOC: [facility] U#:[id number] AGE/SX: 52/F ROOM: RE12/10/[address]: Jeremiah Hines : 1970 BED: DIS: 12/10/2022 SPEC #: [id number] RECD: 12/10/22 12:40 STATUS: [facility] #: [id number] CHERI: 12/10/22 09:[address]: Jeremiah Hines DEPT: Surgical Specimen RECD BY: Salome Rinaldi ENTERED: 12/10/22 12:43 SP TYPE: Bowel OTHR DR: Mojgan Wang Tissues: 1 - BIOPSY BOWEL 2 - BIOPSY BOWEL 3 - BIOPSY BOWEL 4 - BIOPSY BOWEL 5 - BIOPSY BOWEL Procedures: GROSS AND MICRO LEVEL 4 Comments: [id number]
[2022-12-10 09:47] VITALS: BP 119/78; PULSE 85; RESP 18; TEMP 36.4; O2SAT 98
[2022-12-10 10:24] VITALS: BP 139/83; PULSE 94; RESP 18; TEMP 36.5; O2SAT 98
--- NOTE | 2022-12-10 10:56 | W.PM.DSUDISC ---
Date of service: 12/10/22 Time of Service: 10:56 Discharge Plan Disposition Patient Disposition: Home Condition: Good Discharge Details Attending Provider: Jeremiah Hines Primary Care Provider: Mojgan Wang Home Meds and New Rx's Prescriptions: No Action montelukast 10 mg tablet 10 mg PO QPM bisacodyl [Dulcolax (bisacodyl)] 5 mg tablet,delayed release (DR/EC) 5 mg PO ONCE Qty: 4 0RF Rx Instructions: Take per colonoscopy instructions provided by ordering providers office polyethylene glycol 3350 17 gram/dose powder 17 g PO ONCE Qty: 238 0RF Rx Instructions: Take per colonoscopy instructions provided by ordering providers office albuterol sulfate 90 mcg/actuation HFA aerosol inhaler 2 puff inhalation Q6H PRN ibuprofen 600 mg tablet 600 mg PO Q6H PRN Mirena 20 mcg/24 hours (7 yrs) 52 mg intrauterine device 1 insert intrauterine ONCE Patient Comments: Pt states this was removed 2-3 weeks ago. Blood test to show Menopausal. Rx Instructions: as a single dose ondansetron 4 mg tablet,disintegrating 4 mg PO Q8H Discharge Instructions Additional Instructions: FINDINGS: Because of your symptoms of bleeding and colitis, multiple biopsies were taken throughout your colon. These may come back normal. No active inflammation was seen today. Some benign?appearing polyps were seen and removed. You do have diverticulosis which is a very common, benign condition and there is nothing to do about it. You should repeat another colonoscopy in 10 years. Stand Alone Forms: Anesthesia Discharge Inst., Colonoscopy Post Instructions, Moustapha Bueno ([facility]) Activity:: Activity as Tolerated Diet:: As Tolerated Discharge Orders Discharge Orders: Discharge Order (Routine); Ordered 12/10/22 Ordered By: Jeremiah Hines
--- NOTE | 2022-12-10 16:39 | W.ANESPOSTOP ---
Postoperative Evaluation Date, Time and Location Date Performed: 12/10/22 Time Performed: 16:39 Patient Location: Day Surgery Unit Vital Signs Most Recent Imported Vital Signs: Most Recent Vital Signs Temp Pulse Resp BP Pulse Ox 36.5 C 94 H 18 139/83 98 12/10/22 10:24 12/10/22 10:24 12/10/22 10:24 12/10/22 10:24 12/10/22 10:24 Pain Score Most Recent Pain Score: Most Recent Pain Score Pain Level 0 12/10/22 10:24 Assessment Mental Status: Awake (Alert & Oriented to Patient Baseline) Airway and Respiratory Function: Patent airway with normal (patient baseline) respiratory exam Cardiovascular Function: Hemodynamically Stable Hydration Status: Adequately Hydrated Nausea & Vomiting: No Nausea or Vomiting Pain: Pt. Denies Any Pain Peripheral Nerve Block: Patient did not receive a nerve block Postoperative Comments:: Patient was seen in [facility] earlier today and was doing well. All questions answered and appropriate for discharge.
== END 2022-12-10 11:05 | disposition home or self-care (01) ==
PROVIDERS: PCP Physician Assistant Medical; Visit Provider Student in an Organized Health Care Education/Training Program
PROC: 0DJD8ZZ Inspection of Lower Intestinal Tract, Via Natural or Artificial Opening Endoscopic (ICD-10-PCS; CPT 45378; principal; 2022-12-10 08:30)
DX: Z12.11 Encounter for screening for malignant neoplasm of colon (principal); K63.5 Polyp of colon; K57.30 Diverticulosis of large intestine without perforation or abscess without bleeding; Z86.010 Personal history of colon polyps
CPT/HCPCS: 45380; 88305